=== PATIENT | female | born 1960 | race Caucasian/White ===

== ENCOUNTER 2018-07-10 17:59 | Inpatient (IN) ==
[2018-07-10] MEDS ORDERED: Sod Chloride 0.9% Inj 1,000 ML IV.SIG ONE (20:23)
[2018-07-10] MEDS ORDERED: Morphine Inj 4 MG/ML Vial IV.PUSH ONE (20:23)
--- NOTE | 2018-07-10 20:30 | ED ---
HPI General Chief Complaint: Urogenital-Female Stated Complaint: kidney stone Time Seen by Provider: 07/10/18 20:13 Source: patient Mode of arrival: ambulatory Limitations: no limitations History of Present Illness HPI narrative: 58-year-old female came to the emergency room sent from the [facility] where she had gone to be seen earlier for sudden onset right flank pain that started last night. Patient says that the pain was 10 out of 10 then and made her very nauseous. She vomited a few times. This morning she went to the clinic where the nurse practitioner who saw her ordered a CAT scan. The CAT scan was done at [facility] and was reported by the radiologist as a 1.2 cm right mid ureteral stone with moderate hydronephrosis. Patient was also diagnosed with UTI earlier today and she was given an intramuscular shot of antibiotic and pain medication as per the patient. However once the CAT scan was reported she was asked to come to the emergency room as soon as possible to be admitted and consulted by urologist. Patient says that currently her pain is 3 out of 10 and seems like it is worsening. She continues to be nauseous but has not vomited. She was afebrile. Rest of her vital signs were within acceptable limits. Patient says that she had similar pain 4 months back where she was diagnosed with UTI and was given antibiotic course. The pain had subsided after that up until last night. She does not have any past known history of kidney stones. Pain radiates down to the right lower quadrant anteriorly. Related Data Home Medications Medication Instructions Recorded Confirmed cephalexin 500 mg PO QID 07/10/18 07/10/18 ondansetron HCl [Zofran] 4 mg PO TID PRN 07/10/18 07/10/18 Allergies Allergy/AdvReac Type Severity Reaction Status Date / Time No Known Allergies Allergy Verified 07/10/18 18:19 Review of Systems ROS: all other systems reviewed are negative [facility] Surgical History Surgical History H/O tubal ligation (Acute) History of facial surgery (Acute) Social History Social History Substance History: No History of Abuse Second Hand Smoke Exposure: Yes Smoking Status: Current every day smoker Tobacco Type: Cigarettes How Often Do You Have a Drink Containing Alcohol: 2 to 4 times a month Recent Travel in [facility] within the Last 8 Weeks: No Recent Out of Country Travel within the Last 8 Weeks: No Exam Narrative Exam Narrative: GENERAL: Awake, alert, moderate distress SKIN: Focused skin assessment warm/dry. HEAD: Atraumatic. Normocephalic. EYES: Pupils equal and round. No scleral icterus. No injection or drainage. ENT: No nasal bleeding or discharge. Mucous membranes pink and moist. NECK: Trachea midline. No JVD. CARDIOVASCULAR: Regular rate and rhythm. No murmur appreciated. RESPIRATORY: No accessory muscle use. Clear to auscultation. Breath sounds equal bilaterally. GASTROINTESTINAL: Abdomen soft, non-tender, nondistended. Hepatic and splenic margins not palpable. MUSCULOSKELETAL: No obvious deformities. No clubbing. No cyanosis. No edema. NEUROLOGICAL: Awake and alert. No obvious cranial nerve deficits. Motor grossly within normal limits. Normal speech. PSYCHIATRIC: Appropriate mood and affect; insight and judgment normal. Course Initial Documented Vital Signs Temperature 98.3 F 07/10/18 18:17 Pulse Rate 66 07/10/18 18:17 Respiratory Rate 18 07/10/18 18:17 Blood Pressure 160/70 H 07/10/18 18:17 Pulse Oximetry 97 07/10/18 18:17 Last Documented Vital Signs Temperature 98.3 F 07/10/18 18:17 Pulse Rate 66 07/10/18 18:17 Respiratory Rate 18 07/10/18 18:17 Blood Pressure 160/70 H 07/10/18 18:17 Pulse Oximetry 97 07/10/18 18:17 Medical Decision Making [facility] Narrative Medical decision making narrative: 10:03 PM blood test results are back and potassium is highly low. I ordered for p.o. replacement. Rest of the blood test results are within acceptable limit. UA is positive for UTI. I am not sure the antibiotic that patient had received in the form of IM shot as per her. I have not ordered any more antibiotics for the time being. She is getting IV fluid bolus, pain medication and nausea medication. Awaiting for the hospitalist to call back for admission. Medical Screen Exam Complete: Yes Emergency Medical Condition: Yes Lab Data Result diagrams: 07/10/18 20:30 07/10/18 20:30 Lab Results 07/10/18 07/10/18 07/10/18 Range/Units 20:30 20:30 20:30 WBC 8.9 (4.0-11.0) th/mm3 RBC 4.60 (4.00-5.30) mil/mm3 Hgb 13.8 (11.6-15.3) gm/dL Hct 40.7 (35.0-46.0) % MCV 88.6 (80.0-100.0) fL MCH 30.0 (27.0-34.0) pg MCHC 33.9 (32.0-36.0) % RDW 13.3 (11.6-17.2) % Plt Count 241 (150-450) th/mm3 MPV 8.4 (7.0-11.0) fL Neut % (Auto) 56.5 (16.0-70.0) % Lymph % (Auto) 34.2 (9.0-44.0) % [place] % (Auto) 5.9 (0.0-8.0) % Eos % (Auto) 2.7 (0.0-4.0) % Baso % (Auto) 0.7 (0.0-2.0) % Neut # (Auto) 5.0 (1.8-7.7) th/mm3 Lymph # (Auto) 3.0 (1.0-4.8) th/mm3 [place] # (Auto) 0.5 (0.0-0.9) th/mm3 Eos # (Auto) 0.2 (0.0-0.4) th/mm3 Baso # (Auto) 0.1 (0.0-0.2) th/mm3 WBC Differential . Differential Comment Auto diff final Sodium 140 (136-145) meq/L Potassium 3.2 L (3.5-5.1) meq/L Chloride 107 (98-107) meq/L Carbon Dioxide 28.2 (21.0-32.0) meq/L Anion Gap 5 (5-15) meq/L BUN 19 H (7-18) mg/dL Creatinine 0.70 (0.50-1.00) mg/dL Estimated GFR 86 L (>89) mL/min Random Glucose 86 (74-106) mg/dL Calcium 8.9 (8.5-10.1) mg/dL Total Bilirubin 0.3 (0.2-1.0) mg/dL AST 19 (15-37) U/L ALT 21 (10-53) U/L Alkaline Phosphatase 107 (45-117) U/L Total Protein 7.3 (6.4-8.2) g/dL Albumin 3.9 (3.4-5.0) g/dL Urine Color Yellow (Yellw/Straw) Urine Clarity Cloudy H (Clear) Urine pH 6.0 (5.0-8.5) Ur Specific [place] 1.020 (1.002-1.035) Urine Protein 30 H (Neg-Trace) mg/dL Urine Glucose (UA) Negative (Negative) mg/dL Urine Ketones Trace H (Negative) mg/dL Urine Occult Blood Large H (Negative) Urine Nitrate Negative (Negative) Urine Bilirubin Negative (Negative) Urine Urobilinogen Less than 2 (Less than 2) mg/dL Ur Leukocyte Esterase Moderate H (Negative) Urine RBC (0-3) /hpf Urine WBC 174 H (0-5) /hpf Ur Squamous Epith Cells 2 (0-5) /hpf Micro UA Comment Culture indicated Ur Microscopic Review Not Reportable Urine Culture Comments Culture indicated Discharge Plan Discharge Disposition Patient Disposition: ED Admit(ED Internal Use Only) Physicians Team ED Provider: Manny Bueno Primary Care Provider: Primary Care Dina Freeman Rxs /Orders / Referrals /Forms Prescriptions: No Action ondansetron HCl [Zofran] 4 mg Tablet 4 mg PO TID PRN (Reason: Nausea) RF: 0 cephalexin 500 mg Tablet 500 mg PO QID RF: 0 Status ED Status: With Doctor
[2018-07-10 20:48] LABS: Baso # (Auto) 0.1 th/mm3 (0.0-0.2); Baso % (Auto) 0.7 % (0.0-2.0); Eos # (Auto) 0.2 th/mm3 (0.0-0.4); Eos % (Auto) 2.7 % (0.0-4.0); Hematocrit 40.7 % (35.0-46.0); Hemoglobin 13.8 gm/dL (11.6-15.3); Lymph % (Auto) 34.2 % (9.0-44.0); Mean Corpuscular HGB Conc 33.9 % (32.0-36.0); Mean Corpuscular Volume 88.6 fL (80.0-100.0); Mean Platelet Volume 8.4 fL (7.0-11.0); Mono # (Auto) 0.5 th/mm3 (0.0-0.9); Mono % (Auto) 5.9 % (0.0-8.0); Neut % (Auto) 56.5 % (16.0-70.0); Platelet Count 241 th/mm3 (150-450); Red Cell Distribution Width 13.3 % (11.6-17.2); White Blood Count 8.9 th/mm3 (4.0-11.0)
[2018-07-10 21:03] LABS: Bilirubin,Urine Negative (Negative); Clarity,Urine Cloudy (Clear); Color,Urine Yellow (Yellw/Straw); Glucose,Urine (UA) Negative (Negative); Leukocyte Esterase,Urine Moderate (Negative); Nitrite,Urine Negative (Negative); Squamous Epithelial Cell,Urine 2 /hpf (0-5)
[2018-07-10 21:12] LABS: Albumin 3.9 g/dL (3.4-5.0); Anion Gap 5 meq/L (5-15); Aspartate Aminotransferase 19 U/L (15-37); Blood Urea Nitrogen 19 mg/dL (7-18); Calcium 8.9 mg/dL (8.5-10.1); Carbon Dioxide 28.2 meq/L (21.0-32.0); Chloride 107 meq/L (98-107); Glomerular Filtration Rate 86 mL/min (>89); Glucose,Random 86 mg/dL (74-106); Potassium 3.2 meq/L (3.5-5.1); Sodium 140 meq/L (136-145)
[2018-07-10 21:14] LABS: Alanine Aminotransferase 21 U/L (10-53)
[2018-07-10 21:15] LABS: Alkaline Phosphatase 107 U/L (45-117); Total Protein 7.3 g/dL (6.4-8.2)
[2018-07-10] MEDS ORDERED: Morphine Inj 4 MG/ML Vial IV.PUSH PRN (22:25)
[2018-07-10] MEDS ORDERED: Morphine Sulfate Inj 2 MG/ML Vial IV.PUSH PRN (22:25)
[2018-07-10] MEDS ORDERED: Naloxone Inj 0.4 MG/ML Vial IV.PUSH PRN (22:25)
[2018-07-11 05:28] LABS: Baso # (Auto) 0.1 th/mm3 (0.0-0.2); Baso % (Auto) 1.1 % (0.0-2.0); Eos # (Auto) 0.2 th/mm3 (0.0-0.4); Hematocrit 36.7 % (35.0-46.0); Hemoglobin 12.1 gm/dL (11.6-15.3); Lymph # (Auto) 2.9 th/mm3 (1.0-4.8); Lymph % (Auto) 44.1 % (9.0-44.0); Mean Corpuscular HGB Conc 32.9 % (32.0-36.0); Mean Corpuscular Volume 91.2 fL (80.0-100.0); Mean Platelet Volume 8.9 fL (7.0-11.0); Mono # (Auto) 0.4 th/mm3 (0.0-0.9); Mono % (Auto) 6.2 % (0.0-8.0); Neut % (Auto) 45.6 % (16.0-70.0); Platelet Count 197 th/mm3 (150-450); Red Blood Count 4.03 mil/mm3 (4.00-5.30); Red Cell Distribution Width 13.2 % (11.6-17.2); White Blood Count 6.7 th/mm3 (4.0-11.0)
[2018-07-11 05:57] LABS: Anion Gap 5 meq/L (5-15); Blood Urea Nitrogen 15 mg/dL (7-18); Calcium 8.2 mg/dL (8.5-10.1); Carbon Dioxide 24.7 meq/L (21.0-32.0); Chloride 113 meq/L (98-107); Glomerular Filtration Rate Greater Than 89 mL/min (>89); Glucose,Random 81 mg/dL (74-106); Potassium 3.9 meq/L (3.5-5.1); Sodium 143 meq/L (136-145)
--- NOTE | 2018-07-11 11:18 | P.HPIM ---
History of Present Illness Primary Care Physician: [facility], Family/sports Med Chief Complaint: Lower back pain, obstructing kidney stone found on outpatient CT History of Present Illness: This a 50-year-old female patient with past medical history which includes cervical radiculopathy, COPD and nicotine dependence. Patient has been experiencing severe right lower back pain described as a cramping sensation associated with abdominal pain and nausea and vomiting. Initially patient was seen by [facility] 2018. Patient was diagnosed with UTI given IM Rocephin and sent home with p.o. Keflex. Patient also had outpatient CT scan which was done at [place]. The Outpatient CT scan was done at [facility] and was reportedly there was a 1.2 cm right mid ureteral stone with moderate hydronephrosis. Therefore patient was advised to proceed to the emergency department for further evaluation and treatment. Patient also reports intermittent chills. Patient denies fever shortness of breath or chest pain. PMH: cervical radiculopathy, COPD and nicotine dependence PSxH: Left shoulder arthroscopic, strabismus surgery, tubal ligation Family medical history reviewed and noncontributory Social history: Currently Works in an office Current tobacco user smokes 1 pack/day times 20+ years Occasional EtOH use Inpatient Certification Inpatient Certification: I certify that the inpatient services were ordered in accordance with Medicare regulations governing the order. This includes certification that hospital inpatient services are reasonable and necessary and in the case of services not specified as inpatient-only under 42 CFR 419.22(n), that they are appropriately provided as inpatient services in accordance to with the 2-midnight benchmark under 43 CFR 412.3(e) Medications and Allergies Allergies Allergy/AdvReac Type Severity Reaction Status Date / Time No Known Allergies Allergy Verified 07/10/18 18:19 Home Medications Medication Instructions Recorded Confirmed Type cephalexin 500 mg PO QID 07/10/18 07/10/18 History ondansetron HCl [Zofran] 4 mg PO TID PRN 07/10/18 07/10/18 History hydrocodone-acetaminophen 1 tab PO Q4-6H PRN 07/11/18 07/11/18 History Active Medications: Active Medications Ceftriaxone Sodium 1,000 mg/ (Sodium Chloride) 100 mls @ 200 mls/hr IV.SIG Q24H TIFFANIE Last Infusion: 07/10/18 23:25 Dose: Infused Potassium Chloride/Sodium Chloride (Ns + Kcl 20 Meq Inj) 1,000 mls @ 84 mls/hr IV.CONT .[id number] TIFFANIE Last Admin: 07/10/18 22:52 Dose: 84 mls/hr Morphine Sulfate (Morphine Inj) 4 mg IV.PUSH Q3H PRN PRN Reason: PAIN 6-10;IF UNABLE TO TAKE PO Morphine Sulfate (Morphine Inj) 2 mg IV.PUSH Q3H PRN PRN Reason: PAIN 3-5; IF UABLE TO TAKE PO Naloxone HCl (Narcan Inj) 0.4 mg IV.PUSH UNSCH PRN PRN Reason: SEE LABEL COMMENTS Nicotine (Habitrol 14 Mg Patch.24 Hr) 1 patch T-DERMAL DAILY TIFFANIE Patch Removal (Remove Old Patch) 1 each T-DERMAL DAILY TIFFANIE Sodium Chloride (Ns Flush) 2 ml IV.FLUSH PRN PRN PRN Reason: FLUSH AFTER USING IV ACCESS Physical Exam Vital signs: Last Vital Signs Temp 99.2 F 07/11/18 08:00 Pulse 62 07/11/18 08:00 Resp 16 07/11/18 08:00 BP 130/61 07/11/18 08:00 Pulse Ox 97 07/11/18 08:00 Narrative: GENERAL: This is a well-nourished, well-developed patient, in no apparent distress. CARDIOVASCULAR: Regular rate and rhythm RESPIRATORY: Clear to auscultation. Breath sounds equal bilaterally. GASTROINTESTINAL: Abdomen soft, non-tender, nondistended. Normal active bowel sounds GENITOURINARY: right flank pain - resolved MUSCULOSKELETAL: Extremities without clubbing, cyanosis, or edema. NEURO: Alert & Oriented x4 to person, place, time, situation. Moves all ext x4 Results Labs CBC & Chem 7: 07/11/18 04:42 07/11/18 04:42 Caprini VTE Risk Assessment Caprini VTE Risk Assessment: No/Low Risk (score <= 1) Caprini Risk Assessment Model: Point Value = 1 Point Value = 2 Point Value = 3 Point Value = 5 Age 41-60 Minor surgery BMI > 25 kg/m2 Swollen legs Varicose veins or History of unexplained or recurrent spontaneous Oral contraceptives or hormone replacement Sepsis (< 1 month) Serious lung disease, including pneumonia (< 1 month) Abnormal pulmonary function Acute myocardial infarction Congestive heart failure (< 1 month) History of inflammatory bowel disease Medical patient at bed rest Age 61-74 Arthroscopic surgery Major open surgery (> 45 min) Laparoscopic surgery (> 45 min) Malignancy Confined to bed (> 72 hours) Immobilizing plaster cast Central venous access Age >= 75 History of VTE Family history of VTE Factor V Leiden Prothrombin [id number] Lupus anticoagulant Anticardiolipin antibodies Elevated serum homocysteine Heparin-induced thrombocytopenia Other congenital or acquired thrombophilia Stroke (< 1 month) Elective arthroplasty Hip, pelvis, or leg fracture Acute spinal cord injury (< 1 month) Prophylaxis Regimen: Total Risk Factor Score Risk Level Prophylaxis Regimen 0-1 Low Early ambulation 2 Moderate Order ONE of the following: *Sequential Compression Device (SCD) *Heparin 5000 units SQ BID 3-4 Higher Order ONE of the following medications: *Heparin 5000 units SQ TID *Enoxaparin/Lovenox 40 mg SQ daily (WT < 150 kg, CrCl > 30 mL/min) *Enoxaparin/Lovenox 30 mg SQ daily (WT < 150 kg, CrCl > 10-29 mL/min) *Enoxaparin/Lovenox 30 mg SQ BID (WT < 150 kg, CrCl > 30 mL/min) AND/OR *Sequential Compression Device (SCD) 5 or more Highest Order ONE of the following medications: *Heparin 5000 units SQ TID (Preferred with Epidurals) *Enoxaparin/Lovenox 40 mg SQ daily (WT < 150 kg, CrCl > 30 mL/min) *Enoxaparin/Lovenox 30 mg SQ daily (WT < 150 kg, CrCl > 10-29 mL/min) *Enoxaparin/Lovenox 30 mg SQ BID (WT < 150 kg, CrCl > 30 mL/min) AND *Sequential Compression Device (SCD) Assessment and Plan Plan This a 50-year-old female patient with past medical history which includes cervical radiculopathy, COPD and nicotine dependence. Patient has been experiencing severe right lower back pain described as a cramping sensation associated with abdominal pain and nausea and vomiting. Initially patient was seen by [facility] 07/10/2018. Patient was diagnosed with UTI given IM Rocephin and sent home with p.o. Keflex. Patient also had outpatient CT scan which was done at [place]. The Outpatient CT scan was done at [facility] and was reportedly there was a 1.2 cm right mid ureteral stone with moderate hydronephrosis. Therefore patient was advised to proceed to the emergency department for further evaluation and treatment. Patient also reports intermittent chills. Patient denies fever shortness of breath or chest pain. Right hydronephrosis Urinary colic Intractable pain- resolved IV fluids Morphine as needed for pain Consult urology Urinary tract infection Urinalysis reviewed and reveals moderate leukocyte esterase We will continue IV Rocephin 1 g daily Urine culture pending Hypokalemia potassium 3.2 on admission replaced Repeat potassium 07/11/2018 3.9 Nicotine dependence Patient counseled encouraged to abstain Nicotine patch while in the hospital DVT prophylaxis with SCDs H&P: Quality VTE Deep Vein Thrombosis/Pulmonary Embolism Present on Admission: No
[2018-07-11] MEDS ORDERED: Morphine Inj 4 MG/ML Vial IV.PUSH PRN (16:56)
--- NOTE | 2018-07-11 17:12 | P.CONURO ---
History of Present Illness Service: [facility] Consult date: 07/11/18 Requesting Physician: Carlos Salazar Reason for Consult: Obstructing stone, right ureter, recent renal colic Primary Care Provider: No Primary Care Physician Chief Complaint: Lower back pain, obstructing kidney stone found on outpatient CT History of Present Illness: 58-year-old white female who 2 nights ago had an episode of severe right flank pain associated with nausea and vomiting. She was seen in the [facility] urgent care. A CT scan of the abdomen was done at [facility] showing an obstructing 1.2 cm x 6 mm stone in the proximal to mid right ureter with mild to moderate right hydronephrosis. No other stones were seen in either side of her urinary tract. She was referred to the hospital because of the renal colic and the obstructing stone. This episode of renal colic is her second episode. The first episode occurred in February 2018. At that time her symptoms were identical to this episode. She had sudden pain in the right flank associated with nausea and vomiting. She was seen in urgent care where an x-ray was taken that "did not show anything" and she was treated for a UTI with antibiotics. There have been no other urinary tract symptoms in between the 2 episodes. She has not had any bladder symptoms, no dysuria, no urgency, no incontinence. When seen today she is comfortable, without any pain whatsoever, no nausea no vomiting. She denies fever shaking chills and bladder symptoms. The report of the twin leg CT done yesterday is available. It shows the stone as described above. The CT images were then personally reviewed with Dr. Lara in radiology. No additional findings were noted. There are no stones in either kidney or in the opposite ureter. Patient was then personally discussed with both Dr. Salazar and TENISHA Tracy. Recommendation is to discharge patient to be followed up through the [facility] system with a another urologist either [place] [facility] or advanced urology. There is no indication to perform a urological procedure at the present time. [facility] - History History Provided By: Patient - Surgical History Surgical History: Surgical History (Last Reviewed 07/10/18 @ 22:03 by Manny Bueno MD) H/O tubal ligation History of facial surgery - Social History I have reviewed the patient's Social History: Yes - Tobacco History Second Hand Smoke Exposure: Yes Tobacco Use In Past 30 Days: Yes Smoking Status: Current every day smoker Tobacco Type: Cigarettes - Alcohol History How Often Do You Have a Drink Containing Alcohol: 2 to 4 times a month - Substance Use History Substance History: No History of Abuse - Travel History Recent Travel in the [facility] Within the Last 8 Weeks: No Recent Travel Out of the Country Within the Last 8 Weeks: No - Immunization History Tetanus Immunization: >5 Years Hx Influenza Vaccine This Season: No Medications and Allergies Active Medications: Active Medications Ceftriaxone Sodium 1,000 mg/ (Sodium Chloride) 100 mls @ 200 mls/hr IV.SIG Q24H [facility] Last Infusion: 07/10/18 23:25 Dose: Infused Potassium Chloride/Sodium Chloride (Ns + Kcl 20 Meq Inj) 1,000 mls @ 84 mls/hr IV.CONT .[id number] [facility] Last Admin: 07/11/18 11:24 Dose: 84 mls/hr Morphine Sulfate (Morphine Inj) 4 mg IV.PUSH Q3H PRN PRN Reason: PAIN 6-10;IF UNABLE TO TAKE PO Morphine Sulfate (Morphine Inj) 2 mg IV.PUSH Q3H PRN PRN Reason: PAIN 3-5; IF UABLE TO TAKE PO Naloxone HCl (Narcan Inj) 0.4 mg IV.PUSH UNSCH PRN PRN Reason: SEE LABEL COMMENTS Nicotine (Habitrol 14 Mg Patch.24 Hr) 1 patch T-DERMAL DAILY [facility] Last Admin: 07/11/18 11:24 Dose: 1 patch Patch Removal (Remove Old Patch) 1 each T-DERMAL DAILY [facility] Sodium Chloride (Ns Flush) 2 ml IV.FLUSH PRN PRN PRN Reason: FLUSH AFTER USING IV ACCESS Allergies Allergy/AdvReac Type Severity Reaction Status Date / Time No Known Allergies Allergy Verified 07/10/18 18:19 Home Medications Medication Instructions Recorded Confirmed Type cephalexin 500 mg PO QID 07/10/18 07/10/18 History ondansetron HCl [Zofran] 4 mg PO TID PRN 07/10/18 07/10/18 History Physical Exam Vital Signs - 24 hr 07/10/18 18:17 07/10/18 22:07 07/10/18 22:29 Temperature 98.3 F Pulse Rate 66 62 Respiratory Rate 18 16 17 Blood Pressure 160/70 H 166/75 H Pulse Oximetry 97 99 07/11/18 00:41 07/11/18 05:06 07/11/18 06:00 Temperature 97.6 F 98 F Pulse Rate 50 L 49 L 54 L Respiratory Rate 16 17 Blood Pressure 135/74 118/55 L Pulse Oximetry 97 95 96 07/11/18 08:00 07/11/18 12:00 Temperature 99.2 F 99.1 F Pulse Rate 62 50 L Respiratory Rate 16 16 Blood Pressure 130/61 150/70 H Pulse Oximetry 97 97 Physical Exam: GENERAL: This is a well-nourished, well-developed patient, in no apparent distress. The nausea, vomiting, and right flank pain have all disappeared. SKIN: No rashes, ecchymoses or lesions. Cool and dry. Tattoos present. HEAD: Atraumatic. Normocephalic. No temporal or scalp tenderness. EYES: Pupils equal round and reactive. Extraocular motions intact. No scleral icterus. No injection or drainage. ENT: Nose without bleeding, purulent drainage or septal hematoma. Throat without erythema, tonsillar hypertrophy or exudate. Uvula midline. Airway patent. NECK: Trachea midline. No JVD or lymphadenopathy. Supple, nontender, no meningeal signs. CARDIOVASCULAR: Regular rate and rhythm without murmurs, gallops, or rubs. RESPIRATORY: Clear to auscultation. Breath sounds equal bilaterally. No wheezes , rales, or rhonchi. GASTROINTESTINAL: Abdomen soft, non-tender, nondistended. No hepato-splenomegaly , or palpable masses. No guarding. Umbilicus pierced with ornamental object. BLADDER: Non-palpable. GENITOURINARY: FLANKS: NO CVA FLANK TENDERNESS TO MODERATE FIST PERCUSSION. MUSCULOSKELETAL: Extremities without clubbing, cyanosis, or edema. No joint tenderness, effusion, or edema noted. No calf tenderness. Negative Homans sign bilaterally. NEUROLOGICAL: Awake and alert. Cranial nerves II through XII intact. Motor and sensory grossly within normal limits. Five out of 5 muscle strength in all muscle groups. Normal speech. Lab results reviewed: Yes Laboratory Results - last 24 hr 07/10/18 07/10/18 07/10/18 20:30 20:30 20:30 WBC 8.9 RBC 4.60 Hgb 13.8 Hct 40.7 MCV 88.6 MCH 30.0 MCHC 33.9 RDW 13.3 Plt Count 241 MPV 8.4 Neut % (Auto) 56.5 Lymph % (Auto) 34.2 [place] % (Auto) 5.9 Eos % (Auto) 2.7 Baso % (Auto) 0.7 Neut # (Auto) 5.0 Lymph # (Auto) 3.0 [place] # (Auto) 0.5 Eos # (Auto) 0.2 Baso # (Auto) 0.1 WBC Differential . Differential Comment Auto diff final Sodium 140 Potassium 3.2 L Chloride 107 Carbon Dioxide 28.2 Anion Gap 5 BUN 19 H Creatinine 0.70 Estimated GFR 86 L Random Glucose 86 Calcium 8.9 Total Bilirubin 0.3 AST 19 ALT 21 Alkaline Phosphatase 107 Total Protein 7.3 Albumin 3.9 Urine Color Urine Clarity Urine pH Ur Specific [place] Urine Protein Urine Glucose (UA) Urine Ketones Urine Occult Blood Urine Nitrate Urine Bilirubin Urine Urobilinogen Ur Leukocyte Esterase Urine RBC Urine WBC Ur Squamous Epith Cells Micro UA Comment Ur Microscopic Review Urine Culture Comments Chlam trachomat DNA PCR Not detected N.gonorrhoeae DNA (PCR) Not detected 07/10/18 07/11/18 07/11/18 20:30 04:42 04:42 WBC 6.7 RBC 4.03 Hgb 12.1 Hct 36.7 MCV 91.2 MCH 30.0 MCHC 32.9 RDW 13.2 Plt Count 197 MPV 8.9 Neut % (Auto) 45.6 Lymph % (Auto) 44.1 H [place] % (Auto) 6.2 Eos % (Auto) 3.0 Baso % (Auto) 1.1 Neut # (Auto) 3.0 Lymph # (Auto) 2.9 [place] # (Auto) 0.4 Eos # (Auto) 0.2 Baso # (Auto) 0.1 WBC Differential . Differential Comment Auto diff final Sodium 143 Potassium 3.9 Chloride 113 H Carbon Dioxide 24.7 Anion Gap 5 BUN 15 Creatinine 0.51 Estimated GFR Greater than 89 Random Glucose 81 Calcium 8.2 L Total Bilirubin AST ALT Alkaline Phosphatase Total Protein Albumin Urine Color Yellow Urine Clarity Cloudy H Urine pH 6.0 Ur Specific [place] 1.020 Urine Protein 30 H Urine Glucose (UA) Negative Urine Ketones Trace H Urine Occult Blood Large H Urine Nitrate Negative Urine Bilirubin Negative Urine Urobilinogen Less than 2 Ur Leukocyte Esterase Moderate H Urine RBC Urine WBC 174 H Ur Squamous Epith Cells 2 Micro UA Comment Culture indicated Ur Microscopic Review Not Reportable Urine Culture Comments Culture indicated Chlam trachomat DNA PCR N.gonorrhoeae DNA (PCR) Microbiology 07/10/18 20:30 Urine Culture - Preliminary Clean Catch Urine Results Pending 07/10/18 21:50 Aerobic Blood Culture - Preliminary Blood - Peripheral No growth in 1 day Anaerobic Blood Culture - Preliminary No growth in 1 day 07/10/18 21:55 Aerobic Blood Culture - Preliminary Blood - Peripheral No growth in 1 day Anaerobic Blood Culture - Preliminary No growth in 1 day Result Diagrams: 07/11/18 04:42 07/11/18 04:42 Personally reviewed images: Yes Imaging: CT scan done yesterday personally reviewed with Radiologist, Dr. Lara. Assessment and Plan - Assessment (1) Calculus of right ureter Code(s): N20.1 - Calculus of ureter Status: Acute Onset Date: ~07/09/18 (2) Hydronephrosis of right kidney Code(s): N13.30 - Unspecified hydronephrosis Status: Acute Onset Date: ~09/22 (3) Renal colic on right side Code(s): N23 - Unspecified renal colic Status: Acute Onset Date: ~07/09/18 - Plan OK to discharge now from Urological view. No indication for further hospitalization at present. No indication for a Urological procedure at present. F/U with [facility] Urologist for treatment of the stone and hydronephrosis. Discussed Condition With: Patient, nurse Martha Poe PA, Dr. Salazar. Dr. Lara.
--- NOTE | 2018-07-11 17:15 | P.DS ---
DS: Providers Date of admission: 07/10/18 22:09 Primary care physician: No Primary Care Physician Consults: 07/10/18 22:27 Consult to Urology Routine Consulting Provider: Adam Xiong Grape Cutter:: Saravanan Rutherford Reason for Consultation: ureteral stone Notified:: Service Spoke with:: Cristobal Date Notified:: 07/10/18 Time Notified:: 23:44 Ordering Provider: EDGAR Brief History from admission: This a 50-year-old female patient with past medical history which includes cervical radiculopathy, COPD and nicotine dependence. Patient has been experiencing severe right lower back pain described as a cramping sensation associated with abdominal pain and nausea and vomiting. Initially patient was seen by [facility] clinic 07/10/2018. Patient was diagnosed with UTI given IM Rocephin and sent home with p.o. Keflex. Patient also had outpatient CT scan which was done at [place]. The Outpatient CT scan was done at [facility] and was reportedly there was a 1.2 cm right mid ureteral stone with moderate hydronephrosis. Therefore patient was advised to proceed to the emergency department for further evaluation and treatment. Patient also reports intermittent chills. Patient denies fever shortness of breath or chest pain. PMH: cervical radiculopathy, COPD and nicotine dependence PSxH: Left shoulder arthroscopic, strabismus surgery, tubal ligation Family medical history reviewed and noncontributory Social history: Currently Works in an office Current tobacco user smokes 1 pack/day times 20+ years Occasional EtOH use DS: Summary This a 50-year-old female patient with past medical history which includes cervical radiculopathy, COPD and nicotine dependence. Patient has been experiencing severe right lower back pain described as a cramping sensation associated with abdominal pain and nausea and vomiting. Initially patient was seen by [facility] clinic 07/10/2018. Patient was diagnosed with UTI given IM Rocephin and sent home with p.o. Keflex. Patient also had outpatient CT scan which was done at [place]. The Outpatient CT scan was done at [facility] and was reportedly there was a 1.2 cm right mid ureteral stone with moderate hydronephrosis. Therefore patient was advised to proceed to the emergency department for further evaluation and treatment. Patient also reports intermittent chills. Patient denies fever shortness of breath or chest pain. Right hydronephrosis Urinary colic Intractable pain- resolved IV fluids Morphine as needed for pain Consult urology, appreciate input Patient and imaging from [place] reviewed by Dr. Xiong. Case discussed with Dr. Xiong, urology. Patient cleared for DC home with outpatient urology follow up. Possible Urinary tract infection Urinalysis reviewed and reveals moderate leukocyte esterase IV Rocephin 1 g daily while in hospital Urine culture pending patient may can finish her home prescription of cephalexin Hypokalemia potassium 3.2 on admission replaced Repeat potassium 07/11/2018 3.9 Nicotine dependence Patient counseled encouraged to abstain Nicotine patch while in the hospital DVT prophylaxis with SCDs Time Spent with Patient Total time spent providing and/or coordinating discharge services: Quality: VTE Deep Vein Thrombosis/Pulmonary Embolism Present on Admission: No Exam Narrative Exam Narrative: GENERAL: This is a well-nourished, well-developed patient, in no apparent distress. CARDIOVASCULAR: Regular rate and rhythm RESPIRATORY: Clear to auscultation. Breath sounds equal bilaterally. GASTROINTESTINAL: Abdomen soft, non-tender, nondistended. Normal active bowel sounds GENITOURINARY: no flank pain MUSCULOSKELETAL: Extremities without clubbing, cyanosis, or edema. NEURO: Alert & Oriented x4 to person, place, time, situation. Moves all ext x4 Results Labs on day of discharge: Labs from last 24 hours 07/11/18 07/11/18 07/10/18 04:42 04:42 20:30 WBC 6.7 RBC 4.03 Hgb 12.1 Hct 36.7 MCV 91.2 MCH 30.0 MCHC 32.9 RDW 13.2 Plt Count 197 MPV 8.9 Neut % (Auto) 45.6 Lymph % (Auto) 44.1 H Campbell % (Auto) 6.2 Eos % (Auto) 3.0 Baso % (Auto) 1.1 Neut # (Auto) 3.0 Lymph # (Auto) 2.9 Campbell # (Auto) 0.4 Eos # (Auto) 0.2 Baso # (Auto) 0.1 WBC Differential . Differential Comment Auto diff final Sodium 143 Potassium 3.9 Chloride 113 H Carbon Dioxide 24.7 Anion Gap 5 BUN 15 Creatinine 0.51 Estimated GFR Greater than 89 Random Glucose 81 Calcium 8.2 L Total Bilirubin AST ALT Alkaline Phosphatase Total Protein Albumin Urine Color Yellow Urine Clarity Cloudy H Urine pH 6.0 Ur Specific [place] 1.020 Urine Protein 30 H Urine Glucose (UA) Negative Urine Ketones Trace H Urine Occult Blood Large H Urine Nitrate Negative Urine Bilirubin Negative Urine Urobilinogen Less than 2 Ur Leukocyte Esterase Moderate H Urine RBC Urine WBC 174 H Ur Squamous Epith Cells 2 Micro UA Comment Culture indicated Ur Microscopic Review Not Reportable Urine Culture Comments Culture indicated Chlam trachomat DNA PCR N.gonorrhoeae DNA (PCR) 07/10/18 07/10/18 07/10/18 20:30 20:30 20:30 WBC 8.9 RBC 4.60 Hgb 13.8 Hct 40.7 MCV 88.6 MCH 30.0 MCHC 33.9 RDW 13.3 Plt Count 241 MPV 8.4 Neut % (Auto) 56.5 Lymph % (Auto) 34.2 Campbell % (Auto) 5.9 Eos % (Auto) 2.7 Baso % (Auto) 0.7 Neut # (Auto) 5.0 Lymph # (Auto) 3.0 Campbell # (Auto) 0.5 Eos # (Auto) 0.2 Baso # (Auto) 0.1 WBC Differential . Differential Comment Auto diff final Sodium 140 Potassium 3.2 L Chloride 107 Carbon Dioxide 28.2 Anion Gap 5 BUN 19 H Creatinine 0.70 Estimated GFR 86 L Random Glucose 86 Calcium 8.9 Total Bilirubin 0.3 AST 19 ALT 21 Alkaline Phosphatase 107 Total Protein 7.3 Albumin 3.9 Urine Color Urine Clarity Urine pH Ur Specific [place] Urine Protein Urine Glucose (UA) Urine Ketones Urine Occult Blood Urine Nitrate Urine Bilirubin Urine Urobilinogen Ur Leukocyte Esterase Urine RBC Urine WBC Ur Squamous Epith Cells Micro UA Comment Ur Microscopic Review Urine Culture Comments Chlam trachomat DNA PCR Not detected N.gonorrhoeae DNA (PCR) Not detected Preliminary micro results at discharge 07/10/18 20:30 Urine Culture - Preliminary Clean Catch Urine Results Pending 07/10/18 21:50 Aerobic Blood Culture - Preliminary Blood - Peripheral No growth in 1 day Anaerobic Blood Culture - Preliminary No growth in 1 day 07/10/18 21:55 Aerobic Blood Culture - Preliminary Blood - Peripheral No growth in 1 day Anaerobic Blood Culture - Preliminary No growth in 1 day Discharge Plan Discharge Disposition Patient Disposition: Discharge Home Discharge Condition Condition: Stable Discharge Order Discharge Orders: Discharge Order (Routine); Ordered 07/11/18 Ordered By: Tracy Stephens Physicians Team ED Provider: Manny Bueno Primary Care Provider: Primary Care Dina Freeman Attending Provider: Carlos Salazar Other Providers: Adam Xiong Rxs /Orders / Referrals /Forms Prescriptions: Continue ondansetron HCl [Zofran] 4 mg Tablet 4 mg PO TID PRN (Reason: Nausea) RF: 0 cephalexin 500 mg Tablet 500 mg PO QID RF: 0 hydrocodone-acetaminophen 5-325 mg Tablet 1 tab PO Q4-6H PRN (Reason: Pain) RF: 0 Referrals: Primary Care Dina Freeman [Primary Care Provider] - See Instructions (Follow up with PCP [facility], Family/sports Med in 1 week) Hiren Triplett DO [UROLOGY] - See Instructions (follow up in 3-5 days) Status ED Status: Left Department
[2018-07-11 17:33] VITALS: BP 167/73; PULSE 54; RESP 18; TEMP 98.4; O2SAT 99
== END 2018-07-11 18:48 | disposition home or self-care (01) | DRG 690 ==
LOC: NEPC 17:59 → NEDA 22:09 → N06 07-11 00:31
PROVIDERS: ADMIT Hospitalist; ATTEND Hospitalist
CPT/HCPCS: 80048; 80053; 81001; 85025; 87040; 87086; 87491; 87591; 90761; 90774; 90775; 90784; 96361; 96374; 96375; 99285; C8952; J0696; J2270; J2405; J3480; J7030